=== PATIENT | female | born 1985 | race Caucasian/White ===

== ENCOUNTER 2020-08-08 18:23 | Emergency (ER) | payer OTHER ==
[2020-08-08 21:17] VITALS: BP 97/78; PULSE 87
[2020-08-08] MEDS ORDERED: Ketorolac 30 MG/ML SDV IM ONE (21:31)
--- NOTE | 2020-08-08 21:31 | EDM.PDOC ---
ED HPI GENERAL MEDICAL PROBLEM - General Chief Complaint: Lower Extremity Injury/Pain Stated Complaint: LEFT ACELIS TENDON PER PT Time Seen by Provider: 08/08/20 21:22 Source of Information: Reports: Patient, Family (), RN, RN Notes Reviewed History Limitations: Reports: No Limitations - History of Present Illness INITIAL COMMENTS - FREE TEXT/NARRATIVE: Haleigh is a 35 y/o female who presents to the ED via personal vehicle with complaints of left posterior ankle and left posterior lower leg pain and swelling. The patient reports she was running in flip-flops while chasing after her toddler about two hours prior to arrival to this facility. She notes as she was running her leg stopped working, she fell, and felt immediate pain to the back of her leg. The patient attests to pain in her calf with plantar and dorsi flexion and is unable to bear weight without pain. She denies loss of sensory function to the extremity. She denies history of injury to the effected extremity. The patient reports she has not taken any medication for her symptoms. Treatments PATTERN MARKER: Reports: Cold Therapy Left Posterior Ankle Pain Score (Numeric/FACES): 7 - Related Data Allergies Allergy/AdvReac Type Severity Reaction Status Date / Time Penicillins Allergy Hives Verified 02/14/18 06:40 Home Meds: Home Meds Escitalopram Oxalate [Lexapro] 20 mg PO DAILY 08/08/20 [History] buPROPion [Wellbutrin SR] 450 mg PO DAILY 08/08/20 [History] busPIRone [Buspar] 15 mg PO DAILY 08/08/20 [History] Past Medical History HEENT History: Reports: None Genitourinary History: Reports: None QUALITY ENGINEER History: Reports: , Spontaneous Other QUALITY ENGINEER History: IUD placement and removal Musculoskeletal History: Reports: Other (See Below) Other Musculoskeletal History: bone grafts Psychiatric History: Reports: Anxiety, Depression Endocrine/Metabolic History: Reports: Other (See Below) Other Endocrine/Metabolic History: elevated 1 hour sugar screen and has not heard results of 3 hour screen Hematologic History: Reports: Anemia - Past Surgical History HEENT Surgical History: Reports: Adenoidectomy, Tonsillectomy, Other (See Below) Other HEENT Surgeries/Procedures: dental implants Female Surgical History: Reports: Breast Reduction, Section Other Musculoskeletal Surgeries/Procedures:: breast reduction Social & Family History - Family History Family Medical History: No Pertinent Family History - Tobacco Use Tobacco Use Status *Q: Never Tobacco User Second Hand Smoke Exposure: No - Caffeine Use Caffeine Use: Reports: Coffee - Recreational Drug Use Recreational Drug Use: No Review of Systems - Review of Systems Review Of Systems: Comprehensive ROS is negative, except as noted in HPI. ED EXAM, GENERAL - Physical Exam Exam: See Below Exam Limited By: No Limitations General Appearance: Alert, No Apparent Distress Throat/Mouth: Normal Inspection, Normal Oropharynx, Normal Voice, No Airway Compromise Head: Atraumatic, Normocephalic Neck: Normal Inspection, Supple, Non-Tender, Full Range of Motion. No: Lymphadenopathy (L), Lymphadenopathy (R) Respiratory/Chest: No Respiratory Distress, Lungs Clear, Normal Breath Sounds, No Accessory Muscle Use, Chest Non-Tender Cardiovascular: Normal Peripheral Pulses, Regular Rate, Rhythm, No Edema, No Gallop, No JVD, No Murmur, No Rub Peripheral Pulses: 2+: Radial (L), Radial (R), Posterior Tibial (L), Posterior Tibial (R), Dorsalis Pedis (L), Dorsalis Pedis (R) Back Exam: Normal Inspection, Full Range of Motion Extremities: Normal Capillary Refill, Leg Pain (To left posterior lower leg and ankle), Limited Range of Motion, Increased Warmth (To left posterior lower leg), Other (Positive Moreno Achilles squeeze on left). No: Mottled, Pallor, Redness Neurological: Alert, Oriented, CN II-XII Intact, Normal Cognition, No Motor/Sensory Deficits, Abnormal Gait (Pain to left lower leg with weight bearing) Psychiatric: Normal Affect, Normal Mood Skin Exam: Warm, Dry, Intact, Normal Color, No Rash. No: Ecchymosis, Erythema, Jaundice, Mottled, Pallor, Petechiae Course - Vital Signs Last Recorded V/S: Last Vital Signs Temp 97.1 F 08/08/20 21:05 Pulse 87 08/08/20 21:05 Resp 16 08/08/20 21:05 BP 97/78 08/08/20 21:05 Pulse Ox 100 08/08/20 21:05 - Orders/Labs/Meds Meds: Medications Discontinued Medications Generic Name Dose Route Start Last Admin Trade Name Aga PRN Reason Stop Dose Admin Ketorolac Tromethamine 60 mg 08/08/20 21:31 08/08/20 22:44 Ketorolac 30 Mg/Ml Sdv IM 08/08/20 21:32 60 mg ONETIME ONE Administration - Radiology Interpretation Free Text/Narrative:: [facility] [place] [facility] Final Radiology Report Call: [phone] assistance Online chat: [email or web address] Name: HALEIGH LEÓN Age: 35Years F Date: 08/08/2020 SSN: -- : 1985 Study: CR ANKLE MIN 3V LT Requesting Physician: Eva Ron Images: 3 Addl Studies: Provided Clinical History: Fall while running; r/o fracture or dislocation Contrast: Contrast Medium: Contrast Amount: Contrast Method: CONFIDENTIALITY STATEMENT This report is intended only for use by the referring physician, and only in accordance with law. If you received this in error, call [phone]. Page 1 of 1 PROCEDURE INFORMATION: Exam: XR Left Ankle Exam date and time: 08/08/2020 9:33 PM Age: 35 years old Clinical indication: Pain; Ankle; Left; Additional info: Fall while running; R/O fracture or dislocation TECHNIQUE: Imaging protocol: XR Left ankle. Views: 3 or more views. COMPARISON: No relevant prior studies available. FINDINGS: Bones/joints: The bones are intact and normal in appearance. No acute fracture is identified. The ankle mortise is congruent. No ankle joint effusion is seen. Soft tissues: The soft tissues are within normal limits. IMPRESSION: No acute osseous injury identified. Thank you for allowing us to participate in the care of your patient. Dictated and Authenticated by: Liliana Malave MD 08/08/2020 10:13 PM Central Time ([place] & [place]) - Re-Assessments/Exams Free Text/Narrative Re-Assessment/Exam: 08/08/20 Xray performed to r/o dislocation or fracture. Xray negative. Case discussed with Dr. Rodriguez, orthopedic surgeon at [facility] who kindly agreed to see patient in clinic on 08/10/20. Findings of examination, imaging, and discussion with Dr. Rodriguez reviewed with patient and her . Patient instructed to call [facility] tomorrow morning to schedule clinic visit with Dr. Rodriguez. Red flag signs and symptoms which would warrant reevaluation discussed. Patient verbalized understanding and agreement with the plan of care. Departure - Departure Time of Disposition: 22:19 Disposition: Home, Self-Care 01 Condition: Good Clinical Impression: Achilles tendon rupture Qualifiers: Encounter type: initial encounter Laterality: left Qualified Code(s): S86.012A - Strain of left Achilles tendon, initial encounter - Discharge Information *PRESCRIPTION DRUG MONITORING PROGRAM REVIEWED*: Not Applicable *COPY OF PRESCRIPTION DRUG MONITORING REPORT IN PATIENT JEAN: Not Applicable Instructions: Achilles Tendon Tear Forms: ED Department Discharge Additional Instructions: Rx: ketorolac 1.) Follow up with Dr. Rodriguez, orthopedic surgeon at [facility], on Saturday08/10/20. Call [phone] tomorrow to make an appointment. 2.) You may take acetaminophen (Tylenol) 650mg every six hours, as pain persists. Do not take ibuprofen or other NSAIDs while taking ketorolac. 3.) You may take omeprazole or Pepcid while taking ketorolac should you develop heartburn or epigastric discomfort. Sepsis Event Note (ED) - Evaluation Sepsis Screening Result: No Definite Risk - Focused Exam Vital Signs: Vital Signs Temp Pulse Resp BP Pulse Ox 08/08/20 21:05 97.1 F 87 16 97/78 100
--- NOTE | 2020-08-08 22:14 | CR ---
PROCEDURE INFORMATION: Exam: XR Left Ankle Exam date and time: 08/08/2020 9:33 PM Age: 35 years old Clinical indication: Pain; Ankle; Left; Additional info: Fall while running; R/O fracture or dislocation TECHNIQUE: Imaging protocol: XR Left ankle. Views: 3 or more views. COMPARISON: No relevant prior studies available. FINDINGS: Bones/joints: The bones are intact and normal in appearance. No acute fracture is identified. The ankle mortise is congruent. No ankle joint effusion is seen. Soft tissues: The soft tissues are within normal limits. IMPRESSION: No acute osseous injury identified.
== END 2020-08-08 22:54 | disposition home or self-care (01) ==
LOC: DL.ED 18:23
DX: S86.012A Strain of left Achilles tendon, initial encounter (principal); Z88.0 Allergy status to penicillin; W18.39XA Other fall on same level, initial encounter; Y93.02 Activity, running
CPT/HCPCS: 73610-LT; 96372; 99283-25; 99284; J1885